=== PATIENT | male | born 1985 | race Caucasian/White ===

== ENCOUNTER 2022-09-17 08:26 | Emergency (ER) | payer OTHER, SELFPAY ==
[2022-09-17 08:47] VITALS: BP 144/94; PULSE 83; RESP 18; TEMP 36.7; O2SAT 98
[2022-09-17 08:48] VITALS: BP 144/94; PULSE 83; RESP 18; TEMP 36.7; O2SAT 98
--- NOTE | 2022-09-17 09:00 | ED.SKABFB ---
HPI - Skin/Abscess/Foreign Bdy General Chief complaint: Skin/Abscess/Foreign Body Stated complaint: Insect Bites Source: patient Mode of arrival: ambulatory Limitations: no limitations History of Present Illness HPI narrative: 36-year-old male presents to [facility] with complaints of erythematous itchy rash to his bilateral legs, right hip and left axilla for the past 6 weeks. Patient reports that his recently had similar rash. Patient reports that rash started after they went hiking and spent time out doors. Patient reports that he completed a virtual visit and was prescribed triamcinolone at that time. Patient reports that rash continues. Patient reports that triamcinolone did resolve his 's rash. Patient denies shortness of breath, wheezing, trouble swallowing or difficulty breathing. MD complaint: rash Onset (ago): week(s) (6) Severity: mild Quality: pruritic Relieving factors: none Exacerbating factors: none Related Data Allergies Allergy/AdvReac Type Severity Reaction Status Date / Time Penicillins AdvReac Mild Hives Verified 09/17/22 08:48 Review of Systems Constitutional: Constitutional: Denies chills, Denies fatigue, Denies fever(s) and Denies weakness ENT: Denies dizziness, Denies epistaxis, Denies nasal congestion and Denies sore throat Cardiovascular: Cardiovascular: Denies chest pain Respiratory: Respiratory: Denies chest congestion, Denies cough, Denies dyspnea and Denies wheezing Gastrointestinal: Gastrointestinal: Denies diarrhea, Denies nausea and Denies vomiting Musculoskeletal: Musculoskeletal: Denies arthralgias and Denies joint swelling Integumentary/Breasts: Skin/Breast: Reports pruritus, Reports erythema and Reports rash Neurologic: Denies dizziness, Denies syncope and Denies headache(s) PMFSH Family History Family History Father Family history of migraine headaches Sibling Family history of migraine headaches Social History Social History Smoking status: Never smoker Comments At time of signature, I agree with nursing past medical, surgical, social and family history. There is no relevant family history pertinent to the presenting complaint. Exam Const: General: healthy appearing and no acute distress Nutritional Appearance: well nourished Orientation/consciousness: patient oriented x3 Limitations: no limitations HENMT: Head: normal to inspection Eyes: Conjunctivae: conjunctivae normal Neck: Neck: normal visual inspection Resp: Effort & Inspection: normal respiratory effort and not labored Auscultation: clear to auscultation bilaterally, no crackles, no rales, no rhonchi and no wheezes Cardio: Rate: regular rate Rhythm: regular rhythm Heart sounds: no murmurs Skin: General skin exam: normal color Wounds: no wounds Other: Intermittent erythematous macular papular rash noted to bilateral lower legs and scant amount noted to left axilla region likely representing a chigger type bite. There is no surrounding erythema, bruising, bleeding, purulent drainage noted Neuro: General: patient oriented x3 Speech: normal speech Gait exam (Neuro): Normal gait present Psych: Affect: normal affect Attitude: cooperative Course Course Level of Care: Express Care Visit Vital Signs Vital signs: Vital Signs Temperature 36.7 C 09/17/22 08:47 Pulse Rate 83 09/17/22 08:47 Respiratory Rate 18 09/17/22 08:47 Blood Pressure 144/94 H 09/17/22 08:47 Pulse Oximetry 98 09/17/22 08:47 Oxygen Delivery Room Air 09/17/22 08:47 Temperature 36.7 C 09/17/22 08:48 Pulse Rate 83 09/17/22 08:48 Respiratory Rate 18 09/17/22 08:48 Blood Pressure 144/94 H 09/17/22 08:48 Pulse Oximetry 98 09/17/22 08:48 Oxygen Delivery Room Air 09/17/22 08:48 MDM - Skin/Abscess/Foreign Bdy MDM Narrative Medical decision making narrative:
== END 2022-09-17 09:08 | disposition home or self-care (01) ==
PROVIDERS: Emergency Provider Nurse Practitioner Family; PCP Physician Assistant
DX: B88.0 Other acariasis (principal)
CPT/HCPCS: 99213; G0463